=== PATIENT | female | born 1945 | race Two or more races ===

== ENCOUNTER 2020-09-23 13:58 | Outpatient (CLI) | payer OTHER | END 2020-09-23 14:20 | disposition home or self-care (01) | LOC: OFIC 805 13:58 | PROVIDERS: ATTEND Otolaryngology Otology & Neurotology | DX: H90.3 Sensorineural hearing loss, bilateral (principal); H61.23 Impacted cerumen, bilateral; H92.03 Otalgia, bilateral ==

== ENCOUNTER → 2020-12-06 | Outpatient (CLI) | payer OTHER | END | disposition home or self-care (01) | LOC: OFIC 805 12-02 13:00 | PROVIDERS: ATTEND Otolaryngology Otology & Neurotology | DX: H92.03 Otalgia, bilateral (principal); H61.23 Impacted cerumen, bilateral; H90.3 Sensorineural hearing loss, bilateral; C44.292 Other specified malignant neoplasm of skin of right ear and external auricular canal ==

== ENCOUNTER 2020-12-16 15:37 | Outpatient (CLI) | payer OTHER | END 2020-12-16 17:21 | disposition home or self-care (01) | LOC: OFIC 805 15:37 | PROVIDERS: ATTEND Otolaryngology Otology & Neurotology | DX: C44.292 Other specified malignant neoplasm of skin of right ear and external auricular canal (principal); H90.3 Sensorineural hearing loss, bilateral ==

== ENCOUNTER 2021-01-03 11:44 | Outpatient (CLI) | payer OTHER | END 2021-01-03 16:01 | disposition home or self-care (01) | LOC: OFIC 805 11:44 | PROVIDERS: ATTEND Otolaryngology Otology & Neurotology | DX: C44.292 Other specified malignant neoplasm of skin of right ear and external auricular canal (principal); H90.3 Sensorineural hearing loss, bilateral ==